=== PATIENT | male | born 1950 | race African-American/Black ===

== ENCOUNTER 2017-10-11 12:31 | Emergency (ER) | payer OTHER ==
--- NOTE | 2017-10-11 13:22 | RAD REPORT ---
EXAM DESCRIPTION: RAD - Chest Single View - 10/11/2017 1:03 pm CLINICAL HISTORY: Chest pain COMPARISON: None. TECHNIQUE: AP portable chest image was obtained 1254 hours . FINDINGS: Interstitial markings are prominent with the baseline unknown. No peripheral consolidation or mass. Heart size and vasculature are within normal limits. Significant failure or volume overload are not suspected. Sternotomy wires are in place. No measurable pleural effusion and no pneumothorax . No gross bony abnormality seen. No acute aortic findings suspected. IMPRESSION: No focal infiltrate, mass or significant failure/volume overload. Lung markings are prominent with the baseline unknown. Early interstitial edema or infiltrate could b e masked in this setting.
[2017-10-11 13:36] LABS: Protime INR 1.15
[2017-10-11 13:40] LABS: Absolute Lymphocytes (CBC) 1.6 K/uL (0.7-4.9); Absolute Monocytes 0.7 K/uL (0.1-1.3); Basophils % 0.5 % (0-1.3); Eosinophils % 4.2 % (0-4.4); Lymphocytes % 23.8 % (15.3-44.8); MCH 32.4 pg (27.0-35.0); MCV 95.6 fL (80-100); MPV 8.9 fL (7.6-11.3); Monocytes % 10.3 % (3.3-12.3); RBC Red Blood Cell Count 4.61 M/uL (4.33-5.43)
[2017-10-11 14:07] LABS: Albumin 3.1 g/dL (3.4-5.0); Bilirubin Direct 0.2 mg/dL (0-0.2); Bilirubin Total 0.6 mg/dL (0.2-1.0); CKMB Creatine Kinase MB 1.2 ng/mL (0.3-3.6); Protein, Total 8.1 g/dL (6.4-8.2)
[2017-10-11 14:12] LABS: Urine Blood 1+ (NEG); Urine Glucose NEGATIVE (NEG); Urine Protein 1+ (NEG); Urine Specific Gravity 1.025 (1.005-1.030)
--- NOTE | 2017-10-11 14:46 | EKG ---
Test Date: 2017-10-11 Test Time: 12:49:52 [employer] Supervisor: FAVIO MEASUREMENT RESULTS: Intervals: Rate: 75 RI: 152 QRSD: 90 QT: 360 QTc: 402 [place]: P: 56 RI: 152 QRS: 22 T: 94 INTERPRETIVE STATEMENTS: Normal sinus rhythm Cannot rule out Inferior infarct, age undetermined Abnormal ECG Compared to ECG 09/17/2006 12:08:12 Myocardial infarct finding now present Ventricular premature complex(es) no longer present Electronically Signed On 10-11-17 14:44:56 CDT by Joesph Garcia
[2017-10-11] MEDS ORDERED: NA CHLORIDE 0.9% 1,000 ML ONE (15:20)
[2017-10-11] MEDS ORDERED: ASPIRIN 81 MG CHEWABLE TABLET ONE (15:20)
--- NOTE | 2017-10-11 16:01 | RAD REPORT ---
EXAM DESCRIPTION: CT - Chest For Pe Angio - 10/11/2017 3:43 pm CLINICAL HISTORY: Chest pain, shortness of breath, elevated D-dimer COMPARISON: Chest films same date TECHNIQUE: Dynamically enhanced 3 mm thick images of the chest were obtained during administration o f approximately 150mL Isovue 370 IV contrast. Coronal and oblique reconstruction images were generate d and reviewed. Exam utilizes a protocol to evaluate the pulmonary arterial tree. All CT scans are performed using dose optimization technique as appropriate and may include automated exposure control or mA/KV adjustment according to patient size. FINDINGS: No pulmonary emboli are identified. The aorta as imaged shows no acute or suspicious finding. No pericardial thickening or effusion. Posterior gutter atelectasis on the right. No consolidated infiltrate on the right. There is a minima l focus of lung parenchymal opacification in the anterior mid left lung field which could be scarring or atelectatic lung. Mass lesion is unlikely though this can be monitored with a follow-up study in 3- 4 months. This focal opacification measures 2.0 x 1.1 cm (image 37/89). No pneumothorax. Patient h as a small to moderate right-sided pleural effusion. The component along the lateral upper right lung field and apex is likely loculated. Interstitial markings are prominent. Baseline for the patient is unknown. No mediastinal or hilar suspicious masses. No chest wall masses or abnormal axillary lymphadenopathy. No pericardial thickening or effusion. Heart size is upper normal. Sternotomy wires are in place. No acute rib finding. IMPRESSION: No pulmonary emboli identified. Small to moderate right-sided pleural effusion. Most is layering in the posterior right chest. There is a loculated component in the lateral right upper lung field an apex. Interstitial markings are prominent. Baseline is unknown. A 2.0 x 1.1 centimeter focal lung parenchymal opacity anterior mid chest on the left is probably scar ring or atelectasis but needs monitoring with follow-up examination in 3-4 months.
[2017-10-11] MEDS ORDERED: KETOROLAC 30 MG/ML INJ ONE (16:19)
[2017-10-11] MEDS ORDERED: FENTANYL CITR 100 MCG/2 ML ONE (16:58)
[2017-10-11] MEDS ORDERED: ACETYLCYST 6,000 MG/30 ML VIAL ONE (16:58)
--- NOTE | 2017-10-11 16:58 | EDPHYS ---
Physician Documentation [facility] Name: Heraclio Andre III Age: 67 yrs Sex: Male : 1950 Arrival Date: 10/11/2017 Time: 12:33 Bed 23 Private MD: ED Physician Korey Mendoza HPI: 10/11 12:58 This 67 yrs old Black Male presents to ER via Ambulatory with complaints of Chest Pain. cp 12:58 The patient or guardian reports chest pain that is located primarily in the right lower cp lateral chest. 12:58 Onset: 4 day(s) ago. The pain does not radiate. Associated signs and symptoms: cp Pertinent positives: cough, Pertinent negatives: abdominal pain, diaphoresis, lower extremity pain, lower extremity swelling, palpitations, shortness of breath, fever. 12:58 The chest pain is described as sharp. Duration: The patient or guardian reports a cp single episode, that is still ongoing. 12:58 Modifying factors: the symptoms are aggravated by breathing. cp Historical: - Allergies: 12:49 Codeine; hb - Home Meds: 15:28 Novolog 100 unit/mL Sub-Q soln [Active]; aspirin 81 mg Oral TbEC 1 tab once daily hb [Active]; - PMHx: 15:28 Diabetes - IDDM; hb - PSHx: 12:49 CABG; hb - Immunization history:: Adult Immunizations up to date. - Social history:: Smoking status: Patient/guardian denies using tobacco. - Ebola Screening: : No symptoms or risks identified at this time. ROS: 13:05 Constitutional: Negative for body aches, chills, fever, poor PO intake. cp 13:05 Eyes: Negative for injury, pain, redness, and discharge. cp 13:05 ENT: Negative for drainage from ear(s), ear pain, sore throat, difficulty swallowing, difficulty handling secretions. 13:05 Cardiovascular: Positive for chest pain, of the right lower lateral, Negative for edema, palpitations. 13:05 Respiratory: Positive for cough, with yellow sputum, Negative for hemoptysis, shortness of breath, wheezing. 13:05 Abdomen/GI: Negative for abdominal pain, nausea, vomiting, and diarrhea, constipation, black/tarry stool, rectal bleeding. 13:05 Back: Negative for pain at rest, pain with movement. 13:05 : Negative for urinary symptoms. 13:05 MS/extremity: Negative for decreased range of motion, pain, paresthesias, swelling. 13:05 Skin: Negative for cellulitis, rash. 13:05 Neuro: Negative for altered mental status, dizziness, headache, syncope, near syncope, weakness. 13:05 All other systems are negative. Exam: 12:53 ECG was reviewed by the Attending Physician. cp 13:12 Constitutional: The patient appears in no acute distress, alert, awake, cp non-diaphoretic, non-toxic, well developed, well nourished, uncomfortable. 13:12 Head/Face: Normocephalic, atraumatic. Eyes: Pupils equal round and reactive to light, cp extra-ocular motions intact. Lids and lashes normal. Conjunctiva and sclera are non-icteric and not injected. Cornea within normal limits. Periorbital areas with no swelling, redness, or edema. ENT: Nares patent. No nasal discharge, no septal abnormalities noted. Tympanic membranes are normal and external auditory canals are clear. Oropharynx with no redness, swelling, or masses, exudates, or evidence of obstruction, uvula midline. Mucous membranes moist. Neck: Trachea midline, no thyromegaly or masses palpated, and no cervical lymphadenopathy. Supple, full range of motion without nuchal rigidity, or vertebral point tenderness. No Meningismus. 13:12 Chest/axilla: Inspection: normal, Palpation: is normal, no crepitus, no tenderness. 13:12 Cardiovascular: Rate: normal, Rhythm: regular, Pulses: Pulses are 2+ in right radial artery and left radial artery. Heart sounds: murmur, not appreciated, rub, not appreciated, gallop, not appreciated, Edema: is not appreciated, JVD: is not appreciated. 13:12 Respiratory: the patient does not display signs of respiratory distress, Respirations: normal, no use of accessory muscles, no retractions, no splinting, no tachypnea, labored breathing, is not present, Breath sounds: decreased breath sounds, are located in both bases, stridor, is not appreciated, wheezing: is not appreciated. 13:12 Abdomen/GI: Inspection: distension, Bowel sounds: active, all quadrants, Palpation: abdomen is soft and non-tender, in all quadrants, rebound tenderness, is not appreciated, voluntary guarding, is not appreciated, involuntary guarding, is not appreciated. 13:12 Back: pain, is absent, ROM is normal, CVA tenderness, is absent. 13:12 Skin: cellulitis, is not appreciated, no rash present. 13:12 Neuro: Orientation: to person, place \T\ time. Mentation: lucid, able to follow commands, Cerebellar function: is grossly normal, Motor: moves all fours, strength is normal, Sensation: no obvious gross deficits. Vital Signs: 12:49 BP 132 / 87; Pulse 77; Resp 16; Temp 98(TE); Pulse Ox 100% on R/A; Pain 5/10; hb 13:32 BP 122 / 78; Pulse 77; Resp 16; Pulse Ox 97% on R/A; hb 14:30 BP 126 / 76; Pulse 75; Resp 15; Pulse Ox 100% on R/A; hb 15:23 BP 128 / 87; Pulse 73; Resp 17; Pulse Ox 100% on R/A; hb 16:22 BP 138 / 81; Pulse 71; Resp 16; Pulse Ox 100% on R/A; Pain 8/10; hb 17:00 BP 136 / 80; Pulse 70; Resp 16; Pulse Ox 100% on R/A; Pain 4/10; hb MDM: 12:41 Patient medically screened. cp 15:00 Differential diagnosis: acute myocardial infarction, acute pericarditis, chest wall cp pain, pleurisy, pneumonia, pneumothorax, pulmonary embolus, stable angina, unstable angina, pleural effusion. 17:10 The patient was given aspirin in the Emergency Department. cp 17:10 Data reviewed: vital signs, nurses notes, lab test result(s), EKG, radiologic studies, cp CT scan, plain films. Test interpretation: by ED physician or midlevel provider: ECG, plain radiologic studies. Special discussion: Based on the patient's history, exam, and Dx evaluation, there is no indication for emergent intervention or inpatient Tx. It is understood by the patient/guardian that if the Sx's persist or worsen they need to return immediately for re-evaluation. ED course: VSS. Pain improved with meds. Will discharge to home for continued monitoring. 10/11 12:46 Order name: Basic Metabolic Panel; Complete Time: 14:20 cp 10/11 14:20 Interpretation: Normal except: GLUC 170; CRE 1.50; GFR 56. cp 10/11 12:46 Order name: CBC with Diff; Complete Time: 14:20 cp 10/11 16:17 Interpretation: Reviewed. cp 10/11 12:46 Order name: Ckmb; Complete Time: 14:20 cp 10/11 12:46 Order name: CPK; Complete Time: 14:20 cp 10/11 12:46 Order name: LFT's; Complete Time: 14:20 cp 10/11 15:20 Interpretation: Normal except: ALB 3.1; GLOB 5.0; A/G 0.6. cp 10/11 12:46 Order name: Magnesium; Complete Time: 14:20 cp 10/11 12:46 Order name: NT PRO-BNP; Complete Time: 14:20 10/11 16:17 Interpretation: Abnormal: NT PRO-BNP 235. cp 10/11 12:46 Order name: PT-INR; Complete Time: 14:20 10/11 12:46 Order name: Ptt, Activated; Complete Time: 14:20 10/11 12:46 Order name: Troponin (emerg Dept Use Only); Complete Time: 14:20 10/11 12:46 Order name: XRAY Chest (1 view); Complete Time: 13:28 10/11 14:10 Order name: Urine Dipstick--Ancillary (enter results); Complete Time: 14:20 10/11 14:42 Order name: D-Dimer; Complete Time: 15:20 10/11 16:17 Interpretation: Abnormal: D-DIMER 3283. 10/11 14:42 Order name: LAB Add On 10/11 12:46 Order name: EKG; Complete Time: 12:46 10/11 12:46 Order name: Cardiac monitoring; Complete Time: 12:53 cp 10/11 12:46 Order name: EKG - Nurse/Tech; Complete Time: 12:53 10/11 12:46 Order name: IV Saline Lock; Complete Time: 13:33 cp 10/11 12:46 Order name: Labs collected and sent; Complete Time: 13:33 cp 10/11 12:46 Order name: O2 Per Protocol; Complete Time: 12:53 10/11 12:46 Order name: O2 Sat Monitoring; Complete Time: 12:53 10/11 12:46 Order name: Urine Dipstick-Ancillary (obtain specimen); Complete Time: 14:28 cp 10/11 15:11 Order name: CT Chest For PE Angio; Complete Time: 16:12 cp EC:53 Rate is 75 beats/min. Rhythm is regular. ID interval is normal. QRS interval is normal. cp QT interval is normal. T waves are Inverted in leads I, aVL, V6. Interpreted by me. Reviewed by me. Administered Medications: 15:22 Drug: NS 0.9% 500 ml Route: IV; Rate: bolus; Site: left antecubital; hb 16:10 Follow up: Response: No adverse reaction; IV Status: Completed infusion hb 15:22 Drug: Aspirin Chewable Tablet 324 mg Route: PO; hb 16:20 Follow up: Response: No adverse reaction hb 16:20 Drug: TORadol 30 mg Route: IVP; Site: left antecubital; hb 17:00 Follow up: Response: No adverse reaction hb 16:30 Drug: NS 0.9% 1000 ml Route: IV; Rate: 75 ml/hr; Site: left antecubital; hb 17:19 Follow up: Response: No adverse reaction; IV Status: Completed infusion hb 17:00 Drug: Mucomyst - Acetylcysteine 600 mg Route: PO; hb 17:08 Follow up: Response: Medication administered at discharge. hb 17:00 Drug: fentaNYL (PF) 50 mcg Route: IVP; Site: left antecubital; hb 17:18 Follow up: Response: No adverse reaction; Pain is decreased hb Disposition: 10/12 07:07 Co-signature as Attending Physician, Korey Mendoza MD I agree with the assessment and jonah plan of care. Disposition: 10/11/17 16:57 Discharged to Home. Impression: Pleural effusion in other conditions classified elsewhere - Right Lung, Other chest pain. - Condition is Stable. - Discharge Instructions: Nonspecific Chest Pain, Pleural Effusion. - Prescriptions for Tramadol 50 mg Oral Tablet - take 1 tablet by ORAL route every 8 hours as needed; 20 tablet. Ibuprofen 800 mg Oral Tablet - take 1 tablet by ORAL route every 8 hours As needed take with food; 30 tablet. - Medication Reconciliation Form, Thank You Letter, Antibiotic Education, Prescription Opioid Use form. - Follow up: Private Physician; When: 2 - 3 days; Reason: Recheck today's complaints. - Problem is new. - Symptoms have improved. Signatures: Dispatcher [employer] Korey Rios MD MD cha Page, Corey, PA PA cp Paige Villarreal RN RN Corrections: (The following items were deleted from the chart) 10/11 17:23 16:57 10/11/2017 16:57 Discharged to Home. Impression: Pleural effusion in other hb conditions classified elsewhere - Right Lung; Other chest pain. Condition is Stable. Forms are Medication Reconciliation Form, Thank You Letter, Antibiotic Education, Prescription Opioid Use. Follow up: Private Physician; When: 2 - 3 days; Reason: Recheck today's complaints. Problem is new. Symptoms have improved. cp
--- NOTE | 2017-10-11 16:58 | ER ---
Nurse's Notes [facility] Name: Heraclio Andre III Age: 67 yrs Sex: Male : 1950 Arrival Date: 10/11/2017 Time: 12:33 Bed 23 Private MD: Diagnosis: Pleural effusion in other conditions classified elsewhere-Right Lung;Other chest pain Presentation: 10/11 12:47 Presenting complaint: Patient states: Productive cough with yellow sputum x 4 days, hb right lateral chest pain x 1 day. Hx CABG 02/2017. Transition of care: patient was not received from another setting of care. Onset of symptoms was October 11, 2017. Risk Assessment: Do you want to hurt yourself or someone else? Patient reports no desire to harm self or others. Initial Sepsis Screen: Does the patient meet any 2 criteria? No. Patient's initial sepsis screen is negative. Does the patient have a suspected source of infection? No. Patient's initial sepsis screen is negative. Care prior to arrival: None. 12:47 Method Of Arrival: Ambulatory hb 12:47 Acuity: MIGEL 3 hb Historical: - Allergies: 12:49 Codeine; hb - Home Meds: 15:28 Novolog 100 unit/mL Sub-Q soln [Active]; aspirin 81 mg Oral TbEC 1 tab once daily hb [Active]; - PMHx: 15:28 Diabetes - IDDM; hb - PSHx: 12:49 CABG; hb - Immunization history:: Adult Immunizations up to date. - Social history:: Smoking status: Patient/guardian denies using tobacco. - Ebola Screening: : No symptoms or risks identified at this time. Screenin:53 Abuse screen: Denies threats or abuse. Denies injuries from another. Nutritional hb screening: No deficits noted. Tuberculosis screening: No symptoms or risk factors identified. Fall Risk None identified. Assessment: 12:54 General: Appears in no apparent distress. uncomfortable, Behavior is calm, cooperative. hb Pain: Pain does not radiate. Pain currently is 5 out of 10 on a pain scale. Pain began 1 day ago. Neuro: Level of Consciousness is awake, alert, obeys commands, Oriented to person, place, time, situation. Cardiovascular: Heart tones S1 S2 present Capillary refill < 3 seconds Patient's skin is warm and dry. Respiratory: Airway is patent Trachea midline Respiratory effort is even, unlabored, Respiratory pattern is regular, symmetrical, Breath sounds are clear bilaterally. GI: No signs and/or symptoms were reported involving the gastrointestinal system. : No signs and/or symptoms were reported regarding the genitourinary system. EENT: No signs and/or symptoms were reported regarding the EENT system. Derm: No signs and/or symptoms reported regarding the dermatologic system. Skin is intact, is healthy with good turgor. Musculoskeletal: No signs and/or symptoms reported regarding the musculoskeletal system. 13:45 Reassessment: Patient appears in no apparent distress at this time. No changes from hb previously documented assessment. Patient and/or family updated on plan of care and expected duration. Pain level reassessed. Patient is alert, oriented x 3, equal unlabored respirations, skin warm/dry/pink. 14:45 Reassessment: Patient appears in no apparent distress at this time. No changes from hb previously documented assessment. Patient and/or family updated on plan of care and expected duration. Pain level reassessed. Patient is alert, oriented x 3, equal unlabored respirations, skin warm/dry/pink. 15:26 Reassessment: Pt transported to CT via wheelchair with tech. hb 15:39 Reassessment: Pt returned from CT. hb 16:20 Reassessment: Pt c/o right lateral chest pain 8/10, NAD, VSS. PA Page notified, Toradol hb administered as ordered. Family at bedside. 17:10 Reassessment: Patient appears in no apparent distress at this time. Patient and/or hb family updated on plan of care and expected duration. Pain level reassessed. Patient is alert, oriented x 3, equal unlabored respirations, skin warm/dry/pink. Vital Signs: 12:49 BP 132 / 87; Pulse 77; Resp 16; Temp 98(TE); Pulse Ox 100% on R/A; Pain 5/10; hb 13:32 BP 122 / 78; Pulse 77; Resp 16; Pulse Ox 97% on R/A; hb 14:30 BP 126 / 76; Pulse 75; Resp 15; Pulse Ox 100% on R/A; hb 15:23 BP 128 / 87; Pulse 73; Resp 17; Pulse Ox 100% on R/A; hb 16:22 BP 138 / 81; Pulse 71; Resp 16; Pulse Ox 100% on R/A; Pain 8/10; hb 17:00 BP 136 / 80; Pulse 70; Resp 16; Pulse Ox 100% on R/A; Pain 4/10; hb ED Course: 12:33 Patient arrived in ED. rg4 12:41 Korey Saucedo PA is PHCP. cp 12:41 Korey Mendoza MD is Attending Physician. cp 12:42 Paige Villarreal, RN is Primary Nurse. hb 12:48 Triage completed. hb 12:49 Arm band placed on left wrist. hb 12:53 EKG done, by industrial tech instructor. reviewed by Korey MONTOYA. at1 12:53 XRAY Chest (1 view) Sent. hb 12:55 Patient has correct armband on for positive identification. Placed in gown. Bed in low hb position. Call light in reach. Side rails up X 1. manager monitoring on. Pulse ox on. NIBP on. 13:02 X-ray completed. Portable x-ray completed in exam room. Patient tolerated procedure jb2 well. 13:03 XRAY Chest (1 view) In Process Unspecified. EDMS 13:10 Patient maintains SpO2 saturation greater than 95% on room air. hb 13:20 Inserted saline lock: 20 gauge in left antecubital area, using aseptic technique. hb 15:05 Notified Nurse Practitioner and/or Physician Early Childhood Education Coordinator of a critical lab result(s), iw [id number]. 15:[address] via wheelchair. sw 15:40 CT completed. Patient tolerated procedure well. Note: PATIENTS 20 GAUGE IV IN RIGHT AC sw WAS NOT FUNCTIONAL WHEN PT WAS BROUGHT TO CT SCANNER, ROTARY RIG ENGINE OPERATOR RE INSERTED A 22 G INTO PT'S RT WRIST BEFORE EXAMINATION. Patient moved back from CT. 15:44 CT Chest For PE Angio In Process Unspecified. EDMS 17:18 No provider procedures requiring assistance completed. IV discontinued, intact, hb bleeding controlled, No redness/swelling at site. Pressure dressing applied. Administered Medications: 15:22 Drug: NS 0.9% 500 ml Route: IV; Rate: bolus; Site: left antecubital; hb 16:10 Follow up: Response: No adverse reaction; IV Status: Completed infusion hb 15:22 Drug: Aspirin Chewable Tablet 324 mg Route: PO; hb 16:20 Follow up: Response: No adverse reaction hb 16:20 Drug: TORadol 30 mg Route: IVP; Site: left antecubital; hb 17:00 Follow up: Response: No adverse reaction hb 16:30 Drug: NS 0.9% 1000 ml Route: IV; Rate: 75 ml/hr; Site: left antecubital; hb 17:19 Follow up: Response: No adverse reaction; IV Status: Completed infusion hb 17:00 Drug: Mucomyst - Acetylcysteine 600 mg Route: PO; hb 17:08 Follow up: Response: Medication administered at discharge. hb 17:00 Drug: fentaNYL (PF) 50 mcg Route: IVP; Site: left antecubital; hb 17:18 Follow up: Response: No adverse reaction; Pain is decreased hb Outcome: 16:57 Discharge ordered by MD. cp 17:18 Discharged to home ambulatory, with family. hb 17:18 Condition: stable 17:18 Discharge instructions given to patient, family, Instructed on discharge instructions, follow up and referral plans. medication usage, Demonstrated understanding of instructions, follow-up care, medications, Prescriptions given X 2. 17:23 Patient left the ED. hb Signatures: Dispatcher [employer] EDMS Ethan Carrion jb2 Sonia Molina, RN RN iw Zoila jennings, wet room supervisor EKG Tat1 Jami Lucio Corey, PA PA cp Baxter, Heather, TITI RN Zoë Castillo4
[2017-10-11 17:28] VITALS: TEMP 98
[2017-10-11 17:31] VITALS: O2SAT 100
[2017-10-11 17:34] VITALS: BP 136/80
== END 2017-10-11 17:23 | disposition home or self-care (01) ==
LOC: ER 12:31
DX: J90 Pleural effusion, not elsewhere classified (principal); R07.89 Other chest pain; E11.9 Type 2 diabetes mellitus without complications; Z88.6 Allergy status to analgesic agent; Z79.4 Long term (current) use of insulin
CPT/HCPCS: 36415; 71045; 71275; 80048; 80076; 81003; 82550; 82553; 83735; 83880; 84484; 85025; 85379; 85610; 85730; 93005; J3010; J7030; Q9967; 96361; 96374; 96375; 99285

== ENCOUNTER 2021-04-09 13:17 | Inpatient (IN) | payer OTHER ==
[2021-04-09 14:11] LABS: Absolute Lymphocytes (CBC) 0.4 K/uL (0.7-4.9); Hematocrit 43.3 % (39.6-49.0); Lymphocytes % 3.5 % (15.3-44.8); MPV 8.5 fL (7.6-11.3); RBC Red Blood Cell Count 4.71 M/uL (4.33-5.43)
[2021-04-09 14:16] LABS: Protime INR 1.1
[2021-04-09 14:38] LABS: Albumin 2.6 g/dL (3.4-5.0); Bilirubin Direct 0.2 mg/dL (0-0.2); Bilirubin Total 0.6 mg/dL (0.2-1.0); Magnesium 2.8 mg/dL (1.8-2.4); Potassium 4.4 mmol/L (3.5-5.1); Protein, Total 8.4 g/dL (6.4-8.2); Troponin High Sensitivity 9.5 pg/mL (<58.9)
[2021-04-09 14:56] LABS: Blood Morphology Comment NOT SEEN (NOT SEEN); Platelet Estimate ADEQ; White Blood Cell Scan OK (OK)
--- NOTE | 2021-04-09 14:59 | RAD REPORT ---
EXAM DESCRIPTION: Bryanna Single View04/09/2021 2:07 pm CLINICAL HISTORY: Abdominal pain COMPARISON: none FINDINGS: Moderate bilateral pulmonary opacities. Heart is borderline enlarged. Postsurgical changes involve the chest IMPRESSION: Moderate bilateral pulmonary opacities probably pneumonia
--- NOTE | 2021-04-09 17:44 | RAD REPORT ---
EXAM DESCRIPTION: CT - Thorax Wo Con - 04/09/2021 5:35 pm CLINICAL HISTORY: sob COMPARISON: April 09, 2021 x-ray TECHNIQUE: Computed axial tomography of the chest was obtained. Contrast was not requested. All CT scans are performed using dose optimization technique as appropriate and may include automated exposure control or mA/KV adjustment according to patient size. FINDINGS: The evaluation of mediastinum, umu and vessels is limited secondary to lack of IV contras t administration. Moderate right and [id number] left ground-glass opacities within the lungs. Paraseptal emphysema. No mediastinal or hilar lymphadenopathy is seen. Minimal chronic right pleural effusion with pleural thickening. No pericardial effusion IMPRESSION: Moderate right and [id number] left ground-glass opacities within the lungs can be seen with Covid pneumonia
--- NOTE | 2021-04-09 19:02 | ER ---
Nurse's Notes [facility] Name: Heraclio Andre III Age: 71 yrs Sex: Male : 1950 Arrival Date: 04/09/2021 Time: 13:21 Bed 27 Private MD: Diagnosis: Other viral pneumonia;SARS-associated coronavirus as the cause of diseases classified elsewhere Presentation: 04/09 13:24 Chief complaint: EMS states: DX WITH COVID PNEUMONIA 5 DAYS AGO, NOW WITH SOB. bp Coronavirus screen: Client reports previous positive COVID test result. Ebola Screen: No symptoms or risks identified at this time. 13:24 Method Of Arrival: EMS: [facility] bp 14:06 Initial Sepsis Screen: Does the patient meet any 2 criteria? No. Patient's initial jg9 sepsis screen is negative. Does the patient have a suspected source of infection? No. Patient's initial sepsis screen is negative. Risk Assessment: Do you want to hurt yourself or someone else? Patient reports no desire to harm self or others. Onset of symptoms is unknown. 14:06 Acuity: MIGEL 3 jg9 Triage Assessment: 14:06 General: Appears uncomfortable, Behavior is calm. Respiratory: Reports shortness of jg9 breath at rest on exertion Onset: The symptoms/episode began/occurred at an unknown time. the patient has mild shortness of breath. Historical: - Allergies: 14:05 Codeine; jg9 - Home Meds: 14:05 aspirin 81 mg Oral TbEC 1 tab once daily [Active]; Novolog 100 unit/mL Sub-Q soln jg9 [Active]; - PMHx: 14:05 Diabetes - IDDM; jg9 - Immunization history:: Adult Immunizations up to date. - Social history:: Smoking status: unknown. Screenin:35 Abuse screen: Denies threats or abuse. Denies injuries from another. Nutritional jg9 screening: No deficits noted. Tuberculosis screening: No symptoms or risk factors identified. Fall Risk None identified. Assessment: 13:36 Pain: Denies pain. Cardiovascular: No deficits noted. Rhythm is sinus rhythm. jg9 Respiratory: Reports shortness of breath since since diagnosed with COVID on [place] Airway is patent Respiratory effort is even, unlabored, Breath sounds are diminished bilaterally. 17:08 Reassessment: Patient ambulated on room air SpO2 at rest 95% with exertion less than 12 jg9 feet SpO2 dropped into the 80's, with further ambulation-SpO2 continued to decline getting as low as 68% and patient reporting significant sob having to pause to take steps back into the room. Vital Signs: 13:24 BP 120 / 60; Pulse 70; Resp 19; Temp 98; Pulse Ox 84% ; bp 13:30 BP 106 / 60; Pulse 75; Resp 16 S; Temp 97.2(TE); Pulse Ox 96% on R/A; Weight 107.05 kg jg9 (R); Height 5 ft. 10 in. (177.80 cm) (R); 14:15 BP 121 / 67; Pulse 71; Resp 26 S; Pulse Ox 100% on R/A; jg9 15:45 BP 116 / 68; Pulse 73; Resp 24 S; Pulse Ox 100% on R/A; jg9 18:15 BP 133 / 77; Pulse 86; Resp 17 S; Pulse Ox 95% on 3 lpm NC; jg9 13:30 Body Mass Index 33.86 (107.05 kg, 177.80 cm) jg9 ED Course: 13:21 Patient arrived in ED. ss 13:24 Umer Arceo, RN is Primary Nurse. bp 13:29 Eliezer Ch MD is Attending Physician. kdr 13:33 Arm band placed on. bp 13:55 Inserted saline lock: 22 gauge in right antecubital area, using aseptic technique. jg9 Blood collected. 14:06 Triage completed. jg9 14:06 Patient has correct armband on for positive identification. Bed in low position. Call jg9 light in reach. Side rails up X 1. 14:07 XRAY Chest (1 view) In Process Unspecified. EDMS 17:35 CT Chest Wo Con In Process Unspecified. EDMS 19:01 Benjamin Toribio is Hospitalizing Provider. kdr Administered Medications: 19:08 Drug: Decadron - Dexamethasone 10 mg Route: IVP; Site: right antecubital; jg9 Outcome: 19:02 Decision to Hospitalize by Provider. kdr 04/10 18:49 Admitted to Tele accompanied by tech, via stretcher, with oxygen. 6 18:49 Condition: good [facility] 18:49 Instructed on the need for admit. 18:49 Patient left the ED. jh6 Signatures: Dispatcher [employer] EDMS Eliezer Ch MD MD kdr Smirch, Shelby, RN RN Umer Butts RN RN bp Hastedt, Jennifer, RN RN jh6 Tamika Hernandez RN RN jg9
--- NOTE | 2021-04-09 19:02 | EDPHYS ---
Physician Documentation [facility] Name: Heraclio Andre III Age: 71 yrs Sex: Male : 1950 Arrival Date: 04/09/2021 Time: 13:21 Bed 27 Private MD: ED Physician Eliezer Ch HPI: 04/10 19:06 This 71 yrs old Black Male presents to ER via EMS with complaints of Shortness Of kdr Breath. 19:06 The patient has shortness of breath at rest, with light activity. Onset: The kdr symptoms/episode began/occurred gradually, 5 day(s) ago. Duration: The symptoms are intermittent. The patient's shortness of breath is aggravated by exertion, light activity, talking, walking, is alleviated by nothing. Associated signs and symptoms: The patient has no apparent associated signs or symptoms. Severity of symptoms: At their worst the symptoms were mild moderate just prior to arrival, in the emergency department the symptoms are unchanged. The patient has not experienced similar symptoms in the past. The patient has not recently seen a physician. Patient was diagnosed with pneumonia about 5 days ago is now increasingly short of breath. Historical: - Allergies: 04/09 14:05 Codeine; jg9 - Home Meds: 14:05 aspirin 81 mg Oral TbEC 1 tab once daily [Active]; Novolog 100 unit/mL Sub-Q soln jg9 [Active]; - PMHx: 14:05 Diabetes - IDDM; jg9 - Immunization history:: Adult Immunizations up to date. - Social history:: Smoking status: unknown. ROS: 04/10 19:06 Constitutional: Negative for fever, chills, and weight loss, Eyes: Negative for injury, kdr pain, redness, and discharge, Neck: Negative for injury, pain, and swelling, Cardiovascular: Negative for chest pain, palpitations, and edema, Abdomen/GI: Negative for abdominal pain, nausea, vomiting, diarrhea, and constipation, Back: Negative for injury and pain, : Negative for injury, bleeding, discharge, and swelling, MS/Extremity: Negative for injury and deformity, Skin: Negative for injury, rash, and discoloration, Neuro: Negative for headache, weakness, numbness, tingling, and seizure activity. Respiratory: Positive for dyspnea on exertion, pleurisy, shortness of breath, Negative for hemoptysis, orthopnea. Exam: 04/09 15:00 ECG was reviewed by the Attending Physician. kdr 04/10 19:08 Constitutional: This is a well developed, well nourished patient who is awake, alert, kdr and in no acute distress. Head/Face: Normocephalic, atraumatic. Eyes: Pupils equal round and reactive to light, extra-ocular motions intact. Lids and lashes normal. Conjunctiva and sclera are non-icteric and not injected. Cornea within normal limits. Periorbital areas with no swelling, redness, or edema. Neck: Trachea midline, no thyromegaly or masses palpated, and no cervical lymphadenopathy. Supple, full range of motion without nuchal rigidity, or vertebral point tenderness. No Meningismus. Chest/axilla: Normal chest wall appearance and motion. Nontender with no deformity. No lesions are appreciated. Cardiovascular: Regular rate and rhythm with a normal S1 and S2. No gallops, murmurs, or rubs. Normal PMI, no JVD. No pulse deficits. Abdomen/GI: Soft, non-tender, with normal bowel sounds. No distension or tympany. No guarding or rebound. No evidence of tenderness throughout. Back: No spinal tenderness. No costovertebral tenderness. Full range of motion. Skin: Warm, dry with normal turgor. Normal color with no rashes, no lesions, and no evidence of cellulitis. MS/ Extremity: Pulses equal, no cyanosis. Neurovascular intact. Full, normal range of motion. Neuro: Awake and alert, GCS 15, oriented to person, place, time, and situation. Cranial nerves II-XII grossly intact. Motor strength 5/5 in all extremities. Sensory grossly intact. Cerebellar exam normal. Normal gait. Psych: Awake, alert, with orientation to person, place and time. Behavior, mood, and affect are within normal limits. Vital Signs: 04/09 13:24 BP 120 / 60; Pulse 70; Resp 19; Temp 98; Pulse Ox 84% ; bp 13:30 BP 106 / 60; Pulse 75; Resp 16 S; Temp 97.2(TE); Pulse Ox 96% on R/A; Weight 107.05 kg jg9 (R); Height 5 ft. 10 in. (177.80 cm) (R); 14:15 BP 121 / 67; Pulse 71; Resp 26 S; Pulse Ox 100% on R/A; jg9 15:45 BP 116 / 68; Pulse 73; Resp 24 S; Pulse Ox 100% on R/A; jg9 18:15 BP 133 / 77; Pulse 86; Resp 17 S; Pulse Ox 95% on 3 lpm NC; jg9 13:30 Body Mass Index 33.86 (107.05 kg, 177.80 cm) j9 MDM: 19:02 Patient medically screened. [facility] 04/10 19:06 Data reviewed: vital signs, nurses notes, lab test result(s), radiologic studies. kdr Counseling: I had a detailed discussion with the patient and/or guardian regarding: the historical points, exam findings, and any diagnostic results supporting the discharge/admit diagnosis, lab results, radiology results, the need for outpatient follow up. 04/09 13:30 Order name: Basic Metabolic Panel; Complete Time: 14:54 [facility] 04/09 13:30 Order name: CBC with Diff; Complete Time: 17:04 [facility] 04/09 13:30 Order name: LFT's; Complete Time: 14:54 [facility] 04/09 13:30 Order name: Magnesium; Complete Time: 14:54 [facility] 04/09 13:30 Order name: NT PRO-BNP; Complete Time: 14:54 [facility] 04/09 13:30 Order name: PT-INR; Complete Time: 14:54 [facility] 04/09 13:30 Order name: Troponin HS; Complete Time: 14:54 [facility] 04/09 14:56 Order name: CBC Smear Scan; Complete Time: 17:04 [facility] 04/10 05:01 Order name: CBC with Automated Diff [facility] 04/10 05:07 Order name: D-Dimer [facility] 04/10 05:21 Order name: Comprehensive Metabolic Panel [facility] 04/10 05:21 Order name: Phosphorus [facility] 04/10 05:21 Order name: Lipid Profile [facility] 04/10 05:21 Order name: C-Reactive Protein [facility] 04/09 13:30 Order name: XRAY Chest (1 view); Complete Time: 17:04 [facility] 04/09 13:30 Order name: EKG; Complete Time: 13:31 [facility] 04/09 13:30 Order name: Cardiac monitoring; Complete Time: 13:38 [facility] 04/09 13:30 Order name: EKG - Nurse/Tech; Complete Time: 14:03 [facility] 04/09 13:30 Order name: IV Saline Lock; Complete Time: 14:03 [facility] 04/09 13:30 Order name: Labs collected and sent; Complete Time: 14:03 [facility] 04/09 13:30 Order name: O2 Per Protocol; Complete Time: 14:21 [facility] 04/09 13:30 Order name: O2 Sat Monitoring; Complete Time: 14:03 [facility] 04/09 17:05 Order name: CT Chest Wo Con; Complete Time: 18:11 [facility] 04/10 05:21 Order name: Magnesium [facility] 04/10 05:21 Order name: Ferritin [facility] 04/10 08:12 Order name: Glucose, Ancillary Testing [facility] 04/10 12:26 Order name: Glucose, Ancillary Testing [facility] 04/10 17:10 Order name: Glucose, Ancillary Testing [facility] EC/27 15:00 Rate is 77 beats/min. Rhythm is regular, Sinus Rhythm with No ectopy. QRS [place] is kdr Normal. OR interval is normal. QRS interval is normal. QT interval is normal. Clinical impression: NSR w/ Non-specific ST/T Changes. Administered Medications: 19:08 Drug: Decadron - Dexamethasone 10 mg Route: IVP; Site: right antecubital; jg9 Disposition Summary: 04/09/21 19:02 Hospitalization Ordered Hospitalization Status: Inpatient Admission kdr Provider: Benjamin Toribio kdr Condition: Fair kdr Problem: an ongoing problem kdr Symptoms: are unchanged kdr Bed/Room Type: Standard kdr Location: Telemetry/MedSurg (Inpatient)(04/10/21 16:46) Room Assignment: [facility](04/10/21 16:46) eb Diagnosis - Other viral pneumonia kdr - SARS-associated coronavirus as the cause of diseases classified elsewhere kdr Forms: - Medication Reconciliation Form kdr - SBAR form kdr Signatures: Dispatcher [employer] EDRI Svetlana Winkler RN RN Eliezer Joseph MD MD kdr Peltier, Brian, RN RN bp Botello, Elizabeth eb Gilmore, Jennifer, RN RN jg9 Corrections: (The following items were deleted from the chart) 19:45 19:02 Telemetry/MedSurg (Inpatient) [facility] 19:45 19:02 [facility] 04/10 16:04/09 19:45 BR ER HOLD mw eb 04/10 19:45 ERHOLD- mw eb
[2021-04-09] MEDS ORDERED: dexAMETHasone 10 MG/ML VIAL ONE (19:07)
--- NOTE | 2021-04-09 19:42 | P.HP ---
Certification for Inpatient Patient admitted to: Inpatient With expected LOS: >2 Midnights Patient will require the following post-hospital care: None Practitioner: I am a practitioner with admitting privileges, knowledge of patient current condition, hospital course, and medical plan of care. Services: Services provided to patient in accordance with Admission requirements found in Title 42 Section 412.3 of the Code of Federal Regulations Patient History Date of Service: 04/09/21 Primary Care Provider: Marie Reason for admission: covid pneumonia History of Present Illness: Mr. Andre is a 71 yo M with T2DM, CAD, HTN, CKD who presents with two weeks of fever and SOB. He also reports sore throat, fatigue, nausea, and diarrhea. He tested positive for COVID at [facility] today. Upon arrival, his oxygen saturations were 84% on room air, and decreased to 69% upon ambulation. At bedside, his sats are 100% on 4L. He says he still has had good fluid intake. BUN 39 Cr 1.78 GFR 46 Glu 370 AST 58 ALT 84 BNP 142 CXR FINDINGS: Moderate bilateral pulmonary opacities. Heart is borderline enlarged. Postsurgical changes involve the chest IMPRESSION: Moderate bilateral pulmonary opacities probably pneumonia CTPE FINDINGS: The evaluation of mediastinum, umu and vessels is limited secondary to lack of IV contrast administration. Moderate right and ngft-lf-[id number] left ground-glass opacities within the lungs. Paraseptal emphysema. No mediastinal or hilar lymphadenopathy is seen. Minimal chronic right pleural effusion with pleural thickening. No pericardial effusion IMPRESSION: Moderate right and uzrw-vh-wclikndo left ground-glass opacities within the lungs can be seen with Covid pneumonia Allergies codeine [Codeine] Allergy (Intermediate, Verified 12/08/11 11:33) Itching - Past Medical/Surgical History -: DM -: CAD -: HTN -: CKD -: triple bypass surgery -: cardiac stents - Family History Family History: Reviewed- Non-Contributory - Social History Smoking Status: Never smoker Alcohol use: No CD- Drugs: No Caffeine use: Yes Place of Residence: Home Review of Systems 10-point ROS is otherwise unremarkable General: Fever, Malaise Eyes: Unremarkable ENT: Unremarkable Respiratory: Cough, Shortness of Breath, SOB with Excertion Cardiovascular: Unremarkable Gastrointestinal: Nausea, Diarrhea Genitourinary: Unremarkable Musculoskeletal: Unremarkable Integumentary: Unremarkable Neurological: Unremarkable Lymphatics: Unremarkable Physical Examination - Physical Exam General: Alert, In no apparent distress, Cooperative HEENT: Atraumatic, PERRLA, Mucous membr. moist/pink, EOMI, Sclerae nonicteric Neck: Supple, 2+ carotid pulse no bruit, No LAD, Without JVD or thyroid abnormality Respiratory: Diminished, Rhonchi/gurgles Cardiovascular: No edema, Regular rate/rhythm, Normal S1 S2 Gastrointestinal: Normal bowel sounds, No tenderness Musculoskeletal: No tenderness Integumentary: No rashes Neurological: Normal speech (labored), Normal strength at 5/5 x4 extr, Normal tone, Normal affect Lymphatics: No axilla or inguinal lymphadenopathy - Studies Laboratory Data (last 24 hrs) 04/09/21 13:55: PT 12.7 H, INR 1.10 04/09/21 13:55: WBC 10.30, Hgb 14.1, Hct 43.3, Plt Count 243 04/09/21 13:55: Sodium 136, Potassium 4.4, BUN 39 H, Creatinine 1.78 H, Glucose 370 H, Magnesium 2.8 H D, Total Bilirubin 0.6, AST 58 H, ALT 84 H, Alkaline Phosphatase 79 Assessment and Plan - Problems (Diagnosis) (1) Pneumonia due to COVID-19 virus Current Visit: Yes Status: Acute (2) T2DM (type 2 diabetes mellitus) Current Visit: Yes Status: Chronic Qualifiers: Diabetes mellitus care home insulin use: with watermelon harvesting supervisor use Diabetes mellitus complication status: with kidney complications Diabetes mellitus complication detail: with chronic kidney disease Chronic kidney disease stage: stage 3 (moderate) Chronic kidney disease stage 3 subtype: stage 3a (GFR 45- 59) Qualified Code(s): E11.22 - Type 2 diabetes mellitus with diabetic chronic kidney disease; N18.31 - Chronic kidney disease, stage 3a; Z79.4 - halfway (current) use of insulin (3) CAD (coronary artery disease) Current Visit: Yes Status: Chronic Qualifiers: Coronary Disease-Associated Artery/Lesion type: bypass graft [place] vs. transplanted heart: [place] heart Associated angina: without angina Qualified Code(s): I25.810 - Atherosclerosis of coronary artery bypass graft(s) without angina pectoris (4) HTN (hypertension) Current Visit: Yes Status: Chronic Qualifiers: Hypertension type: primary hypertension Qualified Code(s): I10 - Essential (primary) hypertension (5) CKD (chronic kidney disease) Current Visit: Yes Status: Chronic Qualifiers: Chronic kidney disease stage: stage 3 (moderate) Chronic kidney disease stage 3 subtype: stage 3a (GFR 45-59) Qualified Code(s): N18.31 - Chronic kidney disease, stage 3a - Plan crown presser consulted, respiratory therapy consulted continue O2 as needed, IV steroids, covid supplements daily CRP, ferritin, procalcitonin sliding scale insulin and accuchecks monitor kidney function reconcile and continue home medications DVT ppx Discharge Plan: Home Plan to discharge in: Greater than 2 days - Advance Directives Does patient have a Living Will: Yes Does patient have a Durable POA for Healthcare: No - Code Status/Comfort Care Code Status Assessed: Yes (full code ) Critical Care: No Time Spent Managing Pts Care (In Minutes): 70
[2021-04-09 22:40] VITALS: BMI 29.1
[2021-04-09] MEDS: METHYLPREDNISOLONE 40 MG INJ IV SCH (23:43)
[2021-04-09] MEDS: METOPROLOL XL 50 MG TAB PO SCH (23:43)
[2021-04-09] MEDS: INSULIN -REGULAR HUMAN 50 UNIT/0.5 ML ML SQ SCH (23:43)
[2021-04-09] MEDS ORDERED: GLUCAGON 1 MG/VIAL IM PRN (23:43)
[2021-04-09] MEDS: TICAGRELOR 90 MG TABLET PO SCH (23:43)
[2021-04-09] MEDS: ASCORBIC ACID 500 MG TABLET PO SCH (23:43)
[2021-04-09] MEDS ORDERED: ACETAMINOPHEN 500 MG TAB PO PRN (23:43)
[2021-04-09] MEDS ORDERED: ONDANSETRON 4 MG/2 ML VIAL IV PRN (23:43)
[2021-04-09] MEDS ORDERED: HYDRALAZINE HCL 20 MG/ML VIAL IV PRN (23:43)
[2021-04-09] MEDS ORDERED: D50W 25 GM/50 ML SYRINGE IV PRN (23:43)
[2021-04-10] MEDS ORDERED: METOPROLOL XL 50 MG TAB PO ONE
[2021-04-10] MEDS ORDERED: FAMOTIDINE 20 MG/2 ML VIAL IV ONE ×2 (00:01→08:38)
[2021-04-10] MEDS ORDERED: TICAGRELOR 90 MG TABLET PO ONE ×2 (00:01→08:37)
[2021-04-10 04:54] LABS: Absolute Lymphocytes (CBC) 0.3 K/uL (0.7-4.9); Hematocrit 43.8 % (39.6-49.0); Lymphocytes % 4.6 % (15.3-44.8); MPV 8.6 fL (7.6-11.3); RBC Red Blood Cell Count 4.76 M/uL (4.33-5.43)
[2021-04-10 05:16] LABS: Albumin 2.5 g/dL (3.4-5.0); Bilirubin Total 0.6 mg/dL (0.2-1.0); Ferritin 222.5 ng/mL (26-388); Magnesium 2.7 mg/dL (1.8-2.4); Phosphorus 3.2 mg/dL (2.5-4.9); Potassium 4.6 mmol/L (3.5-5.1); Protein, Total 8.6 g/dL (6.4-8.2)
[2021-04-10] MEDS: INSULIN -REGULAR HUMAN 50 UNIT/0.5 ML ML SQ SCH ×4 (07:30→21:00)
[2021-04-10] MEDS ORDERED: ASCORBIC ACID 500 MG TABLET ONE ×3 (08:36→08:39)
[2021-04-10] MEDS ORDERED: ZINC SULFATE 220 MG CAP ONE (08:37)
[2021-04-10] MEDS ORDERED: VITAMIN D 1000 UNIT TAB ONE (08:37)
[2021-04-10] MEDS ORDERED: ENOXAPARIN 40 MG/0.4 ML SQ ONE (08:38)
[2021-04-10] MEDS ORDERED: INSULIN -REGULAR HUMAN 50 UNIT/0.5 ML ML ONE ×3 (08:38→17:19)
[2021-04-10] MEDS ORDERED: METHYLPREDNISOLONE 125 MG INJ ONE ×2 (08:39)
[2021-04-10] MEDS: ENOXAPARIN 40 MG/0.4 ML SQ SCH (08:47)
[2021-04-10] MEDS: TICAGRELOR 90 MG TABLET PO SCH ×2 (08:47→21:00)
[2021-04-10] MEDS: FAMOTIDINE 20 MG/2 ML VIAL IV SCH (08:48)
[2021-04-10] MEDS: ASCORBIC ACID 500 MG TABLET PO SCH ×2 (08:48→21:03)
[2021-04-10] MEDS: METHYLPREDNISOLONE 40 MG INJ IV SCH ×2 (08:48→21:04)
[2021-04-10] MEDS: VITAMIN D 1000 UNIT TAB PO SCH (08:48)
[2021-04-10] MEDS: ZINC SULFATE 220 MG CAP PO SCH (08:48)
[2021-04-10] MEDS ORDERED: TICAGRELOR 90 MG TABLET PO SCH (09:34)
[2021-04-10] MEDS ORDERED: INSULIN GLARGINE 100 UNIT/ML SQ SCH (09:39)
[2021-04-10] MEDS ORDERED: INSULIN GLARGINE 100 UNIT/ML SQ ONE (10:59)
--- NOTE | 2021-04-10 13:03 | P.CNS ---
Date of Consult: 04/10/21 Reason for Consult: Coronavirus pneumonia Primary Care Provider: Marie Chief Complaint: covid pneumonia History of Present Illness: Patient is 71 years of age metabolic syndrome chronic renal disease has been sick with coronavirus pneumonia his also got sick tested positive came in hypoxemic he is doing somewhat better still has cough shortness of breath Allergies codeine [Codeine] Allergy (Intermediate, Verified 12/08/11 11:33) Itching Home Medications: Amoxicillin/Potassium Clav [Amox-Clav 875-125 mg Tablet] 1 each PO Q12HR 04/10/21 Aspirin [Phoebe Chewable] 81 mg PO DAILY 04/10/21 Atorvastatin Calcium [Lipitor] 80 mg PO BEDTIME 04/10/21 Ergocalciferol (Vitamin D2) [Vitamin D2] 1,250 mcg PO DIRECTED 04/10/21 Ezetimibe 10 mg PO DAILY 04/10/21 Famotidine 20 mg PO Q12HR 04/10/21 Glipizide [Glipizide ER] 10 mg PO DAILY 04/10/21 Isosorbide Mononitrate [Isosorbide Mononitrate ER] 60 mg PO DAILY 04/10/21 Lisinopril [Zestril] 40 mg PO DAILY 04/10/21 Metoprolol Succinate 100 mg PO DAILY 04/10/21 Montelukast [Singulair] 10 mg PO DIRECTED 04/10/21 Nitroglycerin 0.4 mg SL DIRECTED 04/10/21 Omeprazole 20 mg PO DAILY 04/10/21 Ticagrelor [Brilinta] 90 mg PO BID 04/10/21 hydroCHLOROthiazide [Hydrochlorothiazide] 12.5 mg PO DAILY 04/10/21 - Past Medical/Surgical History -: DM -: CAD -: HTN -: CKD -: triple bypass surgery -: cardiac stents - Social History Alcohol use: No CD- Drugs: No Caffeine use: Yes Place of Residence: Home Review of Systems General: Weakness Respiratory: Cough, Shortness of Breath Physical Examination Temp Pulse Resp BP Pulse Ox 98.2 F 67 18 157/76 H 99 04/10/21 08:00 04/10/21 08:00 04/10/21 08:00 04/10/21 08:00 04/10/21 08:00 General: Alert, Oriented x3, Mild distress Respiratory: Clear to auscultation bilaterally, Diminished Laboratory Data (last 24 hrs) 04/09/21 13:55: PT 12.7 H, INR 1.10 04/09/21 13:55: WBC 10.30, Hgb 14.1, Hct 43.3, Plt Count 243 04/09/21 13:55: Sodium 136, Potassium 4.4, BUN 39 H, Creatinine 1.78 H, Glucose 370 H, Magnesium 2.8 H D, Total Bilirubin 0.6, AST 58 H, ALT 84 H, Alkaline Phosphatase 79 - Problems (1) Pneumonia due to COVID-19 virus Current Visit: Yes Status: Acute Plan: Patient is 71 years of age admitted with pneumonia due to coronavirus he has mild bilateral groundglass changes oxygenation satisfactory labs reviewed patient has chronic renal failure continue with present therapy possible discharge in 1 to 2 days
--- NOTE | 2021-04-10 17:20 | P.PN ---
Subjective Date of Service: 04/10/21 Primary Care Provider: Marie Chief Complaint: covid pneumonia Patient is stable on 2 to 3 L of oxygen by nasal cannula. He has no new complaint. He denies shortness of breath. Physical Examination - Vital Signs Temperature: 97.6 F Blood Pressure: 136/82 Pulse: 60 Respirations: 18 Pulse Ox (%): 94 - Physical Exam General: Alert, In no apparent distress, Oriented x3 HEENT: Other (Oxygen by nasal cannula) Respiratory: Crackles/rales Cardiovascular: No edema, Regular rate/rhythm, Normal S1 S2 Gastrointestinal: Soft and benign, Non-distended, No tenderness Musculoskeletal: No swelling Integumentary: No rashes, No cyanosis Neurological: Normal strength at 5/5 x4 extr Assessment And Plan - Current Problems (Diagnosis) (1) Pneumonia due to COVID-19 virus Current Visit: Yes Status: Acute (2) HTN (hypertension) Current Visit: Yes Status: Chronic Qualifiers: Hypertension type: primary hypertension Qualified Code(s): I10 - Essential (primary) hypertension (3) T2DM (type 2 diabetes mellitus) Current Visit: Yes Status: Chronic Qualifiers: Diabetes mellitus terminal supervisor insulin use: with terminal supervisor use Diabetes mellitus complication status: with kidney complications Diabetes mellitus complication detail: with chronic kidney disease Chronic kidney disease stage: stage 3 (moderate) Chronic kidney disease stage 3 subtype: stage 3a (GFR 45- 59) Qualified Code(s): E11.22 - Type 2 diabetes mellitus with diabetic chronic kidney disease; N18.31 - Chronic kidney disease, stage 3a; Z79.4 - half-way (current) use of insulin (4) CKD (chronic kidney disease) Current Visit: Yes Status: Chronic Qualifiers: Chronic kidney disease stage: stage 3 (moderate) Chronic kidney disease stage 3 subtype: stage 3a (GFR 45-59) Qualified Code(s): N18.31 - Chronic kidney disease, stage 3a - Plan Continue IV steroid. Vitamin and zinc supplementation. Titrate oxygen. Monitor inflammatory markers. Pulmonary input appreciated. Continue other home medications. Insulin sliding scale and Lantus insulin for glucose management. Titrate Lantus insulin for steroid-induced hyperglycemia.
[2021-04-10] MEDS: ATORVASTATIN 80 MG TAB PO SCH (21:00)
[2021-04-10] MEDS: INSULIN GLARGINE 100 UNIT/ML SQ SCH (21:00)
[2021-04-10] MEDS: METOPROLOL XL 50 MG TAB PO SCH (21:01)
[2021-04-11 06:29] LABS: Absolute Lymphocytes (CBC) 0.3 K/uL (0.7-4.9); Hematocrit 42.8 % (39.6-49.0); Lymphocytes % 2.1 % (15.3-44.8); MPV 8.4 fL (7.6-11.3); RBC Red Blood Cell Count 4.69 M/uL (4.33-5.43)
[2021-04-11 07:06] LABS: Ferritin 202.4 ng/mL (26-388); Potassium 4.5 mmol/L (3.5-5.1)
[2021-04-11] MEDS: INSULIN GLARGINE 100 UNIT/ML SQ SCH ×2 (08:51→20:19)
[2021-04-11] MEDS: INSULIN -REGULAR HUMAN 50 UNIT/0.5 ML ML SQ SCH ×4 (08:51→20:18)
[2021-04-11] MEDS: hydroCHLOROthiazide 12.5 MG CAP PO SCH (08:52)
[2021-04-11] MEDS: TICAGRELOR 90 MG TABLET PO SCH ×2 (08:53→21:00)
[2021-04-11] MEDS: ENOXAPARIN 40 MG/0.4 ML SQ SCH (08:53)
[2021-04-11] MEDS: EZETIMIBE 10 MG TAB PO SCH (08:53)
[2021-04-11] MEDS: ZINC SULFATE 220 MG CAP PO SCH (08:54)
[2021-04-11] MEDS: ASCORBIC ACID 500 MG TABLET PO SCH ×2 (08:54→20:15)
[2021-04-11] MEDS: MONTELUKAST 10 MG TAB PO SCH (08:54)
[2021-04-11] MEDS: FAMOTIDINE 20 MG/2 ML VIAL IV SCH (08:54)
[2021-04-11] MEDS: ASPIRIN 81 MG CHEWABLE TABLET PO SCH (08:54)
[2021-04-11] MEDS: PANTOPRAZOLE 40MG TABLET PO SCH (08:54)
[2021-04-11] MEDS: ISOSORBIDE MONO SR 60 MG TAB PO SCH (08:55)
[2021-04-11] MEDS: VITAMIN D 1000 UNIT TAB PO SCH (08:55)
[2021-04-11] MEDS: lisinopriL 20 MG TAB PO SCH (08:55)
[2021-04-11] MEDS: METHYLPREDNISOLONE 40 MG INJ IV SCH (08:55)
[2021-04-11] MEDS ORDERED: HOME MED 1 EA UNK (Omeprazole [Omeprazole] 20 MG Capsule.Dr) PO SCH (09:00)
[2021-04-11] MEDS ORDERED: METOPROLOL XL 100 MG TAB PO SCH (09:00)
[2021-04-11 09:58] LABS: White Blood Cell Scan OK (OK)
[2021-04-11 09:59] LABS: Blood Morphology Comment NOT SEEN (NOT SEEN); Platelet Estimate ADEQ
--- NOTE | 2021-04-11 10:43 | P.PN ---
Subjective Date of Service: 04/11/21 Primary Care Provider: Salazar Chief Complaint: covid pneumonia Subjective: Improving (Patient is doing well on minimal oxygen no new complaint) Review of Systems General: Weakness Respiratory: Shortness of Breath Physical Examination - Vital Signs Temperature: 97.1 F Blood Pressure: 118/64 Pulse: 60 Respirations: 18 Pulse Ox (%): 93 - Physical Exam General: Alert, In no apparent distress, Oriented x3 Assessment & Plan - Problems (Diagnosis) (1) Pneumonia due to COVID-19 virus Current Visit: Yes Status: Acute Plan: Patient is doing well oxygenation satisfactory plan to discharge home on prednisone 20 mg twice a day for a week then 10 twice a day with low-dose aspirin
--- NOTE | 2021-04-11 12:57 | P.PN ---
Subjective Date of Service: 04/11/21 Primary Care Provider: Marie Chief Complaint: covid pneumonia Patient is stable 3 L oxygen by nasal cannula. Blood sugar readings are elevated. Patient has no complaint and denies shortness of breath. Physical Examination - Vital Signs Temperature: 97.2 F Blood Pressure: 116/70 Pulse: 63 Respirations: 18 Pulse Ox (%): 94 - Physical Exam General: Alert, In no apparent distress, Oriented x3 HEENT: Mucous membr. moist/pink Neck: JVD not distended Respiratory: Crackles/rales (Bilateral) Cardiovascular: No edema, Regular rate/rhythm, Normal S1 S2 Gastrointestinal: Soft and benign, Non-distended Musculoskeletal: No swelling Integumentary: No rashes, No cyanosis Neurological: Normal strength at 5/5 x4 extr Assessment And Plan - Current Problems (Diagnosis) (1) Pneumonia due to COVID-19 virus Current Visit: Yes Status: Acute (2) HTN (hypertension) Current Visit: Yes Status: Chronic Qualifiers: Hypertension type: primary hypertension Qualified Code(s): I10 - Essential (primary) hypertension (3) T2DM (type 2 diabetes mellitus) Current Visit: Yes Status: Chronic Qualifiers: Diabetes mellitus penitentiary insulin use: with penitentiary use Diabetes mellitus complication status: with kidney complications Diabetes mellitus complication detail: with chronic kidney disease Chronic kidney disease stage: stage 3 (moderate) Chronic kidney disease stage 3 subtype: stage 3a (GFR 45- 59) Qualified Code(s): E11.22 - Type 2 diabetes mellitus with diabetic chronic kidney disease; N18.31 - Chronic kidney disease, stage 3a; Z79.4 - director long term care (current) use of insulin (4) CKD (chronic kidney disease) Current Visit: Yes Status: Chronic Qualifiers: Chronic kidney disease stage: stage 3 (moderate) Chronic kidney disease stage 3 subtype: stage 3a (GFR 45-59) Qualified Code(s): N18.31 - Chronic kidney disease, stage 3a - Plan Continue IV steroid. Vitamin and zinc supplementation. Monitor inflammatory markers. Seen by pulmonary. Continue other home medications. Insulin sliding scale. Titrate Lantus insulin for hyperglycemia Arrange for home oxygen.
[2021-04-11] MEDS ORDERED: INSULIN GLARGINE 100 UNIT/ML SQ ONE (15:00)
[2021-04-11 15:16] LABS: Urine Appearance CLEAR (Clear); Urine Bilirubin NEGATIVE (Negative); Urine Blood NEGATIVE (Negative); Urine Color YELLOW (Yellow); Urine Glucose 3+ (Negative); Urine Protein 1+ (Negative); Urine Specific Gravity >=1.030 (1.005-1.030); Urine Urobilinogen 0.2 mg/dL (0.2-1.0); Urine pH 5.5 (5.0-7.0)
[2021-04-11 15:22] LABS: Urine Microscopic Reflex ORDER UMIC
[2021-04-11 16:06] LABS: Urine Bacteria <20 /HPF (NONE SEEN); Urine Mucus 2+ /HPF (NONE SEEN); Urine RBC <5 /HPF (NONE SEEN)
[2021-04-11 16:16] LABS: C-Reactive Protein 50.7 mg/L (<3.00)
[2021-04-11] MEDS: METOPROLOL XL 50 MG TAB PO SCH (20:16)
[2021-04-11] MEDS: predniSONE 20 MG TAB PO SCH (20:16)
[2021-04-11] MEDS: ATORVASTATIN 80 MG TAB PO SCH (20:16)
[2021-04-11] MEDS ORDERED: INSULIN GLARGINE 100 UNIT/ML SQ SCH (21:00)
[2021-04-12 06:33] LABS: Absolute Lymphocytes (CBC) 0.3 K/uL (0.7-4.9); Hematocrit 40.4 % (39.6-49.0); Lymphocytes % 2.2 % (15.3-44.8); MPV 8.7 fL (7.6-11.3); RBC Red Blood Cell Count 4.45 M/uL (4.33-5.43)
[2021-04-12 07:00] LABS: C-Reactive Protein 14.1 mg/L (<3.00); Ferritin 182.3 ng/mL (26-388); Potassium 4.4 mmol/L (3.5-5.1)
[2021-04-12] MEDS ORDERED: D50W 25 GM/50 ML SYRINGE IV PRN (08:13)
[2021-04-12] MEDS ORDERED: GLUCAGON 1 MG/VIAL IM PRN (08:13)
[2021-04-12] MEDS: TICAGRELOR 90 MG TABLET PO SCH ×2 (08:52→21:06)
[2021-04-12] MEDS: ISOSORBIDE MONO SR 60 MG TAB PO SCH (08:53)
[2021-04-12] MEDS: ASCORBIC ACID 500 MG TABLET PO SCH ×2 (08:54→21:06)
[2021-04-12] MEDS: ZINC SULFATE 220 MG CAP PO SCH (08:54)
[2021-04-12] MEDS: hydroCHLOROthiazide 12.5 MG CAP PO SCH (08:54)
[2021-04-12] MEDS: lisinopriL 20 MG TAB PO SCH (08:55)
[2021-04-12] MEDS: ASPIRIN 81 MG CHEWABLE TABLET PO SCH (08:55)
[2021-04-12] MEDS: EZETIMIBE 10 MG TAB PO SCH (08:55)
[2021-04-12] MEDS: INSULIN -REGULAR HUMAN 50 UNIT/0.5 ML ML SQ SCH ×7 (08:56→21:06)
[2021-04-12] MEDS: ENOXAPARIN 40 MG/0.4 ML SQ SCH (08:58)
[2021-04-12] MEDS: VITAMIN D 1000 UNIT TAB PO SCH (09:00)
[2021-04-12] MEDS: PANTOPRAZOLE 40MG TABLET PO SCH (09:10)
[2021-04-12] MEDS: predniSONE 20 MG TAB PO SCH ×2 (09:10→21:06)
[2021-04-12] MEDS: INSULIN GLARGINE 100 UNIT/ML SQ SCH ×2 (09:14→21:00)
--- NOTE | 2021-04-12 13:05 | P.PN ---
Subjective Date of Service: 04/12/21 Primary Care Provider: Marie Chief Complaint: covid pneumonia Has no complaint today and wishes to go home. His oxygen requirement has increased to 5 L by nasal cannula. Blood sugar readings elevated but better compared to previous days. Physical Examination - Vital Signs Temperature: 97.2 F Blood Pressure: 115/59 Pulse: 63 Respirations: 16 Pulse Ox (%): 96 - Physical Exam General: Alert, In no apparent distress, Oriented x3 Neck: JVD not distended Respiratory: Crackles/rales, Other (Nonlabored breathing) Cardiovascular: Regular rate/rhythm, Normal S1 S2 Gastrointestinal: Soft and benign, Non-distended Musculoskeletal: No tenderness Integumentary: No rashes, No cyanosis Neurological: Normal strength at 5/5 x4 extr Assessment And Plan - Current Problems (Diagnosis) (1) Pneumonia due to COVID-19 virus Current Visit: Yes Status: Acute (2) HTN (hypertension) Current Visit: Yes Status: Chronic Qualifiers: Hypertension type: primary hypertension Qualified Code(s): I10 - Essential (primary) hypertension (3) T2DM (type 2 diabetes mellitus) Current Visit: Yes Status: Chronic Qualifiers: Diabetes mellitus assisted insulin use: with technician terminal and repeater use Diabetes mellitus complication status: with kidney complications Diabetes mellitus complication detail: with chronic kidney disease Chronic kidney disease stage: stage 3 (moderate) Chronic kidney disease stage 3 subtype: stage 3a (GFR 45- 59) Qualified Code(s): E11.22 - Type 2 diabetes mellitus with diabetic chronic kidney disease; N18.31 - Chronic kidney disease, stage 3a; Z79.4 - [facility] (current) use of insulin (4) CKD (chronic kidney disease) Current Visit: Yes Status: Chronic Qualifiers: Chronic kidney disease stage: stage 3 (moderate) Chronic kidney disease stage 3 subtype: stage 3a (GFR 45-59) Qualified Code(s): N18.31 - Chronic kidney disease, stage 3a - Plan Continue IV steroid. Vitamin and zinc supplementation. Monitor inflammatory markers. Seen by pulmonary. Continue other home medications. Lantus insulin titrated to 30 units twice daily. Patient takes 20 units Humalog before meals which is resumed. Also on insulin sliding scale. Wean oxygen as tolerated.
[2021-04-12] MEDS: METOPROLOL XL 50 MG TAB PO SCH (21:06)
[2021-04-12] MEDS: ATORVASTATIN 80 MG TAB PO SCH (21:06)
[2021-04-13 04:04] LABS: Absolute Lymphocytes (CBC) 0.4 K/uL (0.7-4.9); Hematocrit 38.9 % (39.6-49.0); Lymphocytes % 3.3 % (15.3-44.8); MPV 8.2 fL (7.6-11.3)
[2021-04-13 04:19] LABS: Potassium 4.1 mmol/L (3.5-5.1)
[2021-04-13] MEDS: INSULIN -REGULAR HUMAN 50 UNIT/0.5 ML ML SQ SCH ×7 (07:30→21:27)
[2021-04-13] MEDS: predniSONE 10 MG TAB ONE ×2 (08:31→09:30)
--- NOTE | 2021-04-13 08:39 | P.PN ---
Subjective Date of Service: 04/13/21 Primary Care Provider: Marie Chief Complaint: covid pneumonia Patient still requiring 4 to 5 L of nasal cannula oxygen condition stable no change Review of Systems General: Weakness Respiratory: Shortness of Breath Physical Examination - Vital Signs Temperature: 98.1 F Blood Pressure: 136/72 Pulse: 59 Respirations: 19 Pulse Ox (%): 95 - Physical Exam General: Alert, In no apparent distress, Oriented x2 Assessment & Plan - Problems (Diagnosis) (1) Pneumonia due to COVID-19 virus Current Visit: Yes Status: Acute Plan: Respiratory failure from coronavirus continue to titrate oxygen level down he is on 5 L today renal function has improved continue with present treatment vital signs otherwise stable
[2021-04-13] MEDS: predniSONE 20 MG TAB PO SCH ×2 (09:00→21:26)
[2021-04-13] MEDS: TICAGRELOR 90 MG TABLET PO SCH ×2 (09:28→21:26)
[2021-04-13] MEDS: hydroCHLOROthiazide 12.5 MG CAP PO SCH (09:28)
[2021-04-13] MEDS: EZETIMIBE 10 MG TAB PO SCH (09:28)
[2021-04-13] MEDS: PANTOPRAZOLE 40MG TABLET PO SCH (09:29)
[2021-04-13] MEDS: ASPIRIN 81 MG CHEWABLE TABLET PO SCH (09:29)
[2021-04-13] MEDS: lisinopriL 20 MG TAB PO SCH (09:29)
[2021-04-13] MEDS: MONTELUKAST 10 MG TAB PO SCH (09:29)
[2021-04-13] MEDS: ASCORBIC ACID 500 MG TABLET PO SCH ×2 (09:29→21:27)
[2021-04-13] MEDS: VITAMIN D 1000 UNIT TAB PO SCH (09:29)
[2021-04-13] MEDS: ZINC SULFATE 220 MG CAP PO SCH (09:29)
[2021-04-13] MEDS: ENOXAPARIN 40 MG/0.4 ML SQ SCH (09:30)
[2021-04-13] MEDS: ISOSORBIDE MONO SR 60 MG TAB PO SCH (09:30)
[2021-04-13] MEDS: INSULIN GLARGINE 100 UNIT/ML SQ SCH ×2 (09:32→21:00)
--- NOTE | 2021-04-13 14:20 | P.PN ---
Subjective Date of Service: 04/13/21 Primary Care Provider: Salazar Chief Complaint: covid pneumonia Has no complaint and wishes to go home today. He is currently tolerating 4 L by nasal cannula. Physical Examination - Vital Signs Temperature: 97.4 F Blood Pressure: 92/57 Pulse: 63 Respirations: 16 Pulse Ox (%): 91 - Physical Exam General: Alert, In no apparent distress HEENT: Mucous membr. moist/pink Neck: JVD not distended Respiratory: Crackles/rales Cardiovascular: No edema, Regular rate/rhythm, Normal S1 S2 Gastrointestinal: Soft and benign, Non-distended Musculoskeletal: No swelling Integumentary: No rashes Neurological: Normal strength at 5/5 x4 extr Assessment And Plan - Current Problems (Diagnosis) (1) Pneumonia due to COVID-19 virus Current Visit: Yes Status: Acute (2) HTN (hypertension) Current Visit: Yes Status: Chronic Qualifiers: Hypertension type: primary hypertension Qualified Code(s): I10 - Essential (primary) hypertension (3) T2DM (type 2 diabetes mellitus) Current Visit: Yes Status: Chronic Qualifiers: Diabetes mellitus [facility] insulin use: with [facility] use Diabetes mellitus complication status: with kidney complications Diabetes mellitus complication detail: with chronic kidney disease Chronic kidney disease stage: stage 3 (moderate) Chronic kidney disease stage 3 subtype: stage 3a (GFR 45- 59) Qualified Code(s): E11.22 - Type 2 diabetes mellitus with diabetic chronic kidney disease; N18.31 - Chronic kidney disease, stage 3a; Z79.4 - residential (current) use of insulin (4) CKD (chronic kidney disease) Current Visit: Yes Status: Chronic Qualifiers: Chronic kidney disease stage: stage 3 (moderate) Chronic kidney disease stage 3 subtype: stage 3a (GFR 45-59) Qualified Code(s): N18.31 - Chronic kidney disease, stage 3a - Plan Continue IV steroid. Vitamin and zinc supplementation. Monitor inflammatory markers. Seen by pulmonary. Continue other home medications. Increase Lantus insulin to 35 units twice a day. Continue 20 units Humalog before meals which is resumed. Also on insulin sliding scale. Wean oxygen as tolerated. Patient is currently tolerating 4 L of O2 by nasal cannula. Home oxygen being arranged.
--- NOTE | 2021-04-13 16:42 | P.DS ---
Admission Date: 04/09/21 Discharge Date: 04/13/21 Primary Care Provider: Marie Reason for Admission: covid pneumonia - Problems (1) Pneumonia due to COVID-19 virus Current Visit: Yes Status: Acute (2) HTN (hypertension) Current Visit: Yes Status: Chronic Qualifiers: Hypertension type: primary hypertension Qualified Code(s): I10 - Essential (primary) hypertension (3) T2DM (type 2 diabetes mellitus) Current Visit: Yes Status: Chronic Qualifiers: Diabetes mellitus terminal manager insulin use: with senior living use Diabetes mellitus complication status: with kidney complications Diabetes mellitus complication detail: with chronic kidney disease Chronic kidney disease stage: stage 3 (moderate) Chronic kidney disease stage 3 subtype: stage 3a (GFR 45- 59) Qualified Code(s): E11.22 - Type 2 diabetes mellitus with diabetic chronic kidney disease; N18.31 - Chronic kidney disease, stage 3a; Z79.4 - terminal manager (current) use of insulin (4) CKD (chronic kidney disease) Current Visit: Yes Status: Chronic Qualifiers: Chronic kidney disease stage: stage 3 (moderate) Chronic kidney disease stage 3 subtype: stage 3a (GFR 45-59) Qualified Code(s): N18.31 - Chronic kidney disease, stage 3a Brief History of Present Illness: Mr. Andre is a 71 yo M with T2DM, CAD, HTN, CKD who presents with two weeks of fever and SOB. He also reported sore throat, fatigue, nausea, and diarrhea. He tested positive for COVID at [place] and was referred to the emergency department due to hypoxia. Upon arrival, his oxygen saturations were 84% on room air, and decreased to 69% upon ambulation. At bedside, his sats were 100% on 4L. BUN 39 Cr 1.78 GFR 46 Glu 370 AST 58 ALT 84 BNP 142. Checks x-ray demonstrated bilateral pulmonary infiltrates. CTA thorax demonstrated bilateral groundglass opacities and paraseptal emphysema. Patient diagnosed with Covid pneumonia and admitted for further management. Hospital Course: Patient admitted to the medical floor and started on Covid treatment protocol with IV steroid, vitamin and zinc supplementation and inflammatory markers monitored. Patient seen and evaluated by pulmonary-Dr. Paul. IV steroid taper down to oral prednisone 20 mg twice daily. Patient's oxygen requirement decreased and now tolerating 2 L by nasal cannula. He has shown clinical improvement and deemed stable for discharge. He is discharged with home oxygen and a tapering dose of oral prednisone. His home Lantus dose has been titrated up to 35 units twice a day to cover steroid-induced hyperglycemia. Vital Signs/Physical Exam: Temp Pulse Resp BP Pulse Ox 97.4 F 63 16 92/57 L 91 04/13/21 14:20 04/13/21 14:20 04/13/21 14:20 04/13/21 14:20 04/13/21 14:20 General: Alert, In no apparent distress, Oriented x3 HEENT: Mucous membr. moist/pink, Sclerae nonicteric Neck: JVD not distended Respiratory: Other (Nonlabored breathing) Cardiovascular: No edema, Regular rate/rhythm, Normal S1 S2 Gastrointestinal: Soft and benign, Non-distended Musculoskeletal: No swelling Integumentary: No rashes Neurological: Normal strength at 5/5 x4 extr Laboratory Data at Discharge: WBC 11.90 K/uL (4.3-10.9) H 04/13/21 03:47 Hgb 12.9 g/dL (13.6-17.9) L 04/13/21 03:47 Hct 38.9 % (39.6-49.0) L 04/13/21 03:47 Plt Count 249 K/uL (152-406) 04/13/21 03:47 PT 12.7 SECONDS (9.5-12.5) H 04/09/21 13:55 INR 1.10 04/09/21 13:55 Sodium 136 mmol/L (136-145) 04/13/21 03:47 Potassium 4.1 mmol/L (3.5-5.1) 04/13/21 03:47 BUN 41 mg/dL (7-18) H 04/13/21 03:47 Creatinine 1.50 mg/dL (0.55-1.3) H 04/13/21 03:47 Glucose 230 mg/dL (74-106) H 04/13/21 03:47 Phosphorus 3.2 mg/dL (2.5-4.9) 04/10/21 04:43 Magnesium 2.7 mg/dL (1.8-2.4) H 04/10/21 04:43 Total Bilirubin 0.6 mg/dL (0.2-1.0) 04/10/21 04:43 AST 35 U/L (15-37) 04/10/21 04:43 ALT 80 U/L (12-78) H 04/10/21 04:43 Alkaline Phosphatase 83 U/L (45-117) 04/10/21 04:43 Triglycerides 78 mg/dL (<150) 04/10/21 04:43 Cholesterol 101 mg/dL (<200) 04/10/21 04:43 HDL Cholesterol 36 mg/dL (40-60) L 04/10/21 04:43 Cholesterol/HDL Ratio 2.81 04/10/21 04:43 Home Medications: Aspirin [Phoebe Chewable Aspirin] 81 mg PO DAILY 04/10/21 Atorvastatin Calcium [Lipitor] 80 mg PO BEDTIME 04/10/21 Ezetimibe 10 mg PO DAILY 04/10/21 Glipizide [Glipizide ER] 10 mg PO DAILY 04/10/21 Isosorbide Mononitrate [Isosorbide Mononitrate ER] 60 mg PO DAILY 04/10/21 Lisinopril [Zestril] 40 mg PO DAILY 04/10/21 Metoprolol Succinate 100 mg PO DAILY 04/10/21 Montelukast [Singulair*] 10 mg PO DIRECTED 04/10/21 Nitroglycerin 0.4 mg SL DIRECTED 04/10/21 Omeprazole 20 mg PO DAILY 04/10/21 Ticagrelor [Brilinta*] 90 mg PO BID 04/10/21 hydroCHLOROthiazide [Hydrochlorothiazide] 12.5 mg PO DAILY 04/10/21 Ascorbic Acid [Vitamin C*] 1,000 mg PO BID #120 tablet 04/13/21 Cholecalciferol (Vitamin D3) [Vitamin D3] 4,000 unit PO DAILY #60 capsule 04/13/21 Insulin -Regular Human [Novolin -R*] 20 unit SQ ACHS ml 04/13/21 Insulin Glargine,Hum.rec.anlog [Semglee] 35 unit SQ BID ml 04/13/21 Zinc Sulfate [Zinc Sulfate*] 220 mg PO DAILY #30 cap 04/13/21 predniSONE [Prednisone*] 20 mg PO BID #15 tab 04/13/21 New Medications: predniSONE [Prednisone*] 20 mg PO BID #15 tab Ascorbic Acid [Vitamin C*] 1,000 mg PO BID #120 tablet Cholecalciferol (Vitamin D3) [Vitamin D3] 4,000 unit PO DAILY #60 capsule Zinc Sulfate [Zinc Sulfate*] 220 mg PO DAILY #30 cap Diet: ADA Activity: Ad demian Followup: Brandin Paul MD [ACTIVE - CAN ADMIT] - 1 Week NONE,NONE [Primary Care Provider] - Time spent managing pt's care (in minutes): 35
[2021-04-13] MEDS: METOPROLOL XL 50 MG TAB PO SCH (21:00)
[2021-04-13] MEDS: ATORVASTATIN 80 MG TAB PO SCH (21:26)
[2021-04-14 03:49] LABS: Absolute Lymphocytes (CBC) 0.2 K/uL (0.7-4.9); Hematocrit 41.2 % (39.6-49.0); Lymphocytes % 2.3 % (15.3-44.8); MPV 8.6 fL (7.6-11.3); RBC Red Blood Cell Count 4.48 M/uL (4.33-5.43)
[2021-04-14 04:04] LABS: Potassium 3.9 mmol/L (3.5-5.1)
[2021-04-14 04:52] VITALS: TEMP 97.4
[2021-04-14] MEDS: EZETIMIBE 10 MG TAB PO SCH (08:25)
[2021-04-14] MEDS: ISOSORBIDE MONO SR 60 MG TAB PO SCH (08:25)
[2021-04-14] MEDS: ENOXAPARIN 40 MG/0.4 ML SQ SCH (08:25)
[2021-04-14] MEDS: TICAGRELOR 90 MG TABLET PO SCH (08:25)
[2021-04-14] MEDS: VITAMIN D 1000 UNIT TAB PO SCH (08:25)
[2021-04-14] MEDS: predniSONE 20 MG TAB PO SCH (08:26)
[2021-04-14] MEDS: PANTOPRAZOLE 40MG TABLET PO SCH (08:26)
[2021-04-14] MEDS: hydroCHLOROthiazide 12.5 MG CAP PO SCH (08:26)
[2021-04-14] MEDS: ASPIRIN 81 MG CHEWABLE TABLET PO SCH (08:26)
[2021-04-14] MEDS: ZINC SULFATE 220 MG CAP PO SCH (08:26)
[2021-04-14 08:27] VITALS: BP 115/67
[2021-04-14] MEDS: ASCORBIC ACID 500 MG TABLET PO SCH (08:27)
[2021-04-14] MEDS: lisinopriL 20 MG TAB PO SCH (08:27)
[2021-04-14] MEDS: INSULIN -REGULAR HUMAN 50 UNIT/0.5 ML ML SQ SCH ×2 (08:27→12:40)
[2021-04-14] MEDS: INSULIN GLARGINE 100 UNIT/ML SQ SCH (08:28)
--- NOTE | 2021-04-14 12:03 | P.PN ---
Subjective Date of Service: 04/14/21 Primary Care Provider: Salazar Chief Complaint: covid pneumonia Patient is doing better no new complaints he is down to less than 4 L of nasal cannula oxygen Review of Systems General: Weakness Respiratory: Shortness of Breath Physical Examination - Vital Signs Temperature: 97.4 F Blood Pressure: 115/67 Pulse: 72 Respirations: 16 Pulse Ox (%): 92 - Physical Exam General: Alert, In no apparent distress, Oriented x3 Assessment & Plan - Problems (Diagnosis) (1) Pneumonia due to COVID-19 virus Current Visit: Yes Status: Acute Plan: Patient is doing much better he is down to less than 4 L of oxygen subjectively has improved plan to discharge home on O2 renal function stable discharge continue with prednisone at home
[2021-04-14 12:16] VITALS: O2SAT 97
--- NOTE | 2021-04-14 18:16 | P.PN ---
Date of Service: 04/14/21 Please see updated discharge summary dated on 04/13/2021 Patient blood glucose improved, denied any new symptoms. Remained stable on 2 L nasal cannula Discharged home with home oxygen this morning.
== END 2021-04-14 15:20 | disposition home or self-care (01) | DRG 177 ==
LOC: ER 13:17 → ERHOLD 17:40 → 4TH 04-10 18:44
PROVIDERS: ADMIT Internal Medicine; ATTEND Hospitalist
DX: U07.1 COVID-19 (principal); J12.82 Pneumonia due to coronavirus disease 2019; I25.810 Atherosclerosis of coronary artery bypass graft(s) without angina pectoris; I12.9 Hypertensive chronic kidney disease with stage 1 through stage 4 chronic kidney disease, or unspecified chronic kidney disease; N18.31 Chronic kidney disease, stage 3a; E11.22 Type 2 diabetes mellitus with diabetic chronic kidney disease; E11.65 Type 2 diabetes mellitus with hyperglycemia; T38.0X5A Adverse effect of glucocorticoids and synthetic analogues, initial encounter; Z79.82 Long term (current) use of aspirin; Z95.5 Presence of coronary angioplasty implant and graft; Z79.4 Long term (current) use of insulin; Z88.5 Allergy status to narcotic agent; Z79.84 Long term (current) use of oral hypoglycemic drugs; Z79.52 Long term (current) use of systemic steroids
CPT/HCPCS: 36415; 71045; 71250; 80048; 80053; 80061; 80076; 81003; 81015; 82728; 82947; 83631; 83735; 83880; 84100; 84484; 85025; 85379; 85610; 86140; 93005; 94760; 96374; 99285; J1100; J1650; J2920; J2930; J7512

== ENCOUNTER 2023-06-13 15:38 | Emergency (ER) | payer OTHER ==
--- OUTSIDE RECORDS SUMMARY | 2023-06-13 15:41 | XMS REPORT | Continuity of Care Document ---
Author Name Unknown Address [address] [place] [address] [employer] Address [address] [place] [address] Care Team Providers Care Mathematics Professor Name Role Phone Unavailable Unavailable Unavailable
[2023-06-13 16:09] LABS: Absolute Eosinophils 0.1 K/uL (0-0.5); Absolute Lymphocytes (CBC) 0.6 K/uL (0.7-4.9); Absolute Monocytes 0.7 K/uL (0.1-1.3); Basophils % 0.7 % (0-1.3); Eosinophils % 2.3 % (0-4.4); Hematocrit 39.4 % (39.6-49.0); Hemoglobin 13.3 g/dL (13.6-17.9); MCH 31.2 pg (27.0-35.0); MCHC 33.7 g/dL (32.0-36.0); MCV 92.6 fL (80-100); MPV 7.7 fL (7.6-11.3); Monocytes % 10.3 % (3.3-12.3); Neutrophils % 77.7 % (41.7-73.7); Platelets 217 thou/uL (152-406); RBC Red Blood Cell Count 4.25 M/uL (4.33-5.43); Red Cell Distribution Width 16.2 % (12.1-15.2)
[2023-06-13 16:21] LABS: Anion Gap 8.8 mEq/L (5.0-15.0); Potassium 3.8 mEq/L (3.5-5.1)
--- NOTE | 2023-06-13 19:15 | ER ---
Nurse's Notes [facility] Name: Heraclio Andre III Age: 73 yrs Sex: Male : 1950 Arrival Date: 06/13/2023 Time: 15:38 Bed 20 Private MD: Diagnosis: Hypoglycemia, unspecified Presentation: 06/12 15:49 Chief complaint: EMS states: low blood sugar. Coronavirus screen: Client denies travel cp4 out of the [place] in the last 14 days. At this time, the client does not indicate any symptoms associated with coronavirus-19. Ebola Screen: Patient negative for fever greater than or equal to 101.5 degrees Fahrenheit, and additional compatible Ebola Virus Disease symptoms Patient denies exposure to infectious person. Patient denies travel to an Ebola-affected area in the 21 days before illness onset. No symptoms or risks identified at this time. Initial Sepsis Screen: Does the patient meet any 2 criteria? No. Patient's initial sepsis screen is negative. Does the patient have a suspected source of infection? No. Patient's initial sepsis screen is negative. Risk Assessment: Do you want to hurt yourself or someone else? Patient reports no desire to harm self or others. Onset of symptoms was June 13, 2023. 15:49 Method Of Arrival: EMS: [facility] cp4 15:49 Acuity: MIGEL 3 cp4 Triage Assessment: 15:50 General: Appears in no apparent distress. Behavior is calm, cooperative, appropriate cp4 for age. Pain: Denies pain. Neuro: No deficits noted. Historical: - Allergies: 15:50 Codeine; cp4 - Home Meds: 15:50 aspirin 81 mg Oral TbEC 1 tab once daily [Active]; Novolog 100 unit/mL Sub-Q soln cp4 [Active]; - PMHx: 15:50 Diabetes - IDDM; cp4 - Immunization history:: Adult Immunizations up to date. - Infectious Disease History:: Denies. CDIFF, C. Auris, ESBL, MRSA (w/in 1 year), VRE (w/in 1 year), TB, . - Social history:: Smoking status: Patient denies any tobacco usage or history of. Screenin:52 [facility] ED Fall Risk Assessment (Adult) History of falling in the last 3 months, cp4 including since admission No falls in past 3 months (0 pts) Confusion or Disorientation No (0 pts) Intoxicated or Sedated No (0 pts) Impaired Gait No (0 pts) Mobility Assist Device Used No (0 pt) Altered Elimination No (0 pt) Score/Fall Risk Level 0 - 2 = Low Risk Oriented to surroundings, Maintained a safe environment, Assessed \T\ reinforced patient's understanding of fall precautions, Hourly rounding (assess needs \T\ fall precautionary measures) done. Abuse screen: Denies threats or abuse. Nutritional screening: No deficits noted. Tuberculosis screening: No symptoms or risk factors identified. Assessment: 15:52 Reassessment: No changes from previously documented assessment. cp4 16:23 Reassessment: No changes from previously documented assessment. Patient and/or family ll1 updated on plan of care and expected duration. Pain level reassessed. Patient is alert, oriented x 3, equal unlabored respirations, skin warm/dry/pink. Vital Signs: 15:49 BP 155 / 85; Pulse 81; Resp 18; Temp 98; Pulse Ox 95% ; Pain 0/10; cp4 17:00 BP 132 / 67; Pulse 80; Resp 18; Pulse Ox 100% ; cp4 18:00 BP 119 / 75; Pulse 81; Resp 18; Pulse Ox 100% ; cp4 15:49 Pain Scale: Adult cp4 ED Course: 15:46 Patient arrived in ED. cp4 15:47 Aliza Rehman is Primary Nurse. cp4 15:49 Andrew Thompson DO is Attending Physician. ms3 15:50 Triage completed. cp4 15:50 Arm band placed on right wrist. Patient placed in an exam room, on a stretcher. cp4 15:52 Bed in low position. Call light in reach. Side rails up X 1. cp4 16:02 Client placed on continuous cardiac and pulse oximetry monitoring. NIBP monitoring cp4 applied. 16:02 Glucose Sent. cp4 16:02 BMP Sent. cp4 16:02 CBC with Diff Sent. cp4 16:02 Initial lab(s) drawn, by me, sent to lab. Inserted saline lock: 20 gauge in right cp4 antecubital area, using aseptic technique. Blood collected. Patient maintains SpO2 saturation greater than 95% on room air. 19:52 Provided Education on: hypoglycemia. cp4 19:52 No provider procedures requiring assistance completed. intact, bleeding controlled, No cp4 redness/swelling at site. Pressure dressing applied. Administered Medications: No medications were administered Medication: 15:52 VIS not applicable for this client. cp4 Outcome: 19:14 Discharge ordered by . ms3 19:52 Discharged to home ambulatory, cp4 19:52 Condition: stable 19:52 Discharge instructions given to patient, Instructed on discharge instructions, follow up and referral plans. Demonstrated understanding of instructions, follow-up care, 19:53 Patient left the ED. cp4 Signatures: Kenya Rizzo RN RN ll1 Andrew Thompson DO DO ms3 Aliza Rehman cp4
--- NOTE | 2023-06-13 19:15 | EDPHYS ---
Physician Documentation [facility] Name: Heraclio Andre III Age: 73 yrs Sex: Male : 1950 Arrival Date: 06/13/2023 Time: 15:38 Bed 20 Private MD: ED Physician Andrew Thompson HPI: 06/12 15:52 This 73 yrs old Black Male presents to ER via EMS with complaints of Low Blood Sugar. ms3 15:52 73-year-old male with past medical history of diabetes, coronary artery disease, ms3 hypertension presents to the emergency department for hypoglycemia. On EMS arrival patient's blood glucose level was 42. They administered oral glucose and patient sugar increased to 57. Patient states when he woke this morning his blood sugar was 120 and he took his insulin and pills. Patient notes he did eat green eggs and toast for breakfast. Patient states he does not remember EMS arriving.. Historical: - Allergies: 15:50 Codeine; cp4 - Home Meds: 15:50 aspirin 81 mg Oral TbEC 1 tab once daily [Active]; Novolog 100 unit/mL Sub-Q soln cp4 [Active]; - PMHx: 15:50 Diabetes - IDDM; cp4 - Immunization history:: Adult Immunizations up to date. - Infectious Disease History:: Denies. CDIFF, C. Auris, ESBL, MRSA (w/in 1 year), VRE (w/in 1 year), TB, . - Social history:: Smoking status: Patient denies any tobacco usage or history of. ROS: 15:52 Constitutional: Negative for fever, and chills. Neck: Negative for injury, pain, and ms3 swelling, Cardiovascular: Negative for chest pain, and palpitations. Respiratory: Negative for shortness of breath, cough, wheezing, and pleuritic chest pain, Abdomen/GI: Negative for abdominal pain, nausea, vomiting, diarrhea, and constipation, MS/Extremity: Negative for injury and deformity, Skin: Negative for injury, rash, and discoloration, Exam: 15:52 Constitutional: This is a well developed, well nourished patient who is awake, alert, ms3 and in no acute distress. Head/Face: Normocephalic, atraumatic. Neck: Trachea midline, no cervical lymphadenopathy. Supple, full range of motion without nuchal rigidity, or vertebral point tenderness. No Meningismus. Chest/axilla: Normal chest wall appearance and motion. Nontender with no deformity. Cardiovascular: Regular rate and rhythm with a normal S1 and S2. No gallops, murmurs, or rubs. Normal PMI, no JVD. No pulse deficits. Respiratory: Lungs have equal breath sounds bilaterally, clear to auscultation and percussion. No rales, rhonchi or wheezes noted. No increased work of breathing, no retractions or nasal flaring. Abdomen/GI: Soft, non-tender, with normal bowel sounds. No distension or tympany. No guarding or rebound. No evidence of tenderness throughout. Skin: Warm, dry with normal turgor. Normal color with no rashes, no lesions, and no evidence of cellulitis. Vital Signs: 15:49 BP 155 / 85; Pulse 81; Resp 18; Temp 98; Pulse Ox 95% ; Pain 0/10; cp4 17:00 BP 132 / 67; Pulse 80; Resp 18; Pulse Ox 100% ; cp4 18:00 BP 119 / 75; Pulse 81; Resp 18; Pulse Ox 100% ; cp4 15:49 Pain Scale: Adult cp4 MDM: 15:49 Patient medically screened. ms3 15:52 Differential diagnosis: hypoglycemia vs electrolyte abnormality vs htn. ms3 19:14 Data reviewed: vital signs, nurses notes, lab test result(s), and as a result, I will ms3 discharge patient. Consideration of Admission/Observation Escalation of care including admission/observation considered. Patient's blood sugar maintained in the emergency department without hypoglycemic episode. Historians other than the Patient: EMS: [place]. Counseling: I had a detailed discussion with the patient and/or guardian regarding the historical points, exam findings, and any diagnostic results supporting the discharge/admit diagnosis, lab results, the need for outpatient follow up, to return to the emergency department if symptoms worsen or persist or if there are any questions or concerns that arise at home. ED course: Discussed holding nighttime long-acting insulin and decreasing morning insulin by half and monitoring blood glucose levels with patient and his . Patient to follow-up with his primary care physician in 1 to 2 days. Patient understands and agrees with plan. All questions were answered. Return precautions discussed include worsening symptoms, altered mental status, diaphoresis, hypoglycemia, or any other concerns. 06/12 15:49 Order name: CBC with Diff; Complete Time: 19:05 ms3 06/12 15:49 Order name: BMP; Complete Time: 19:05 ms3 06/12 17:18 Order name: Glucose, Ancillary Testing; Complete Time: 19:05 EDMS 06/12 19:21 Order name: Glucose, Ancillary Testing EDMS 06/12 15:49 Order name: PO challenge; Complete Time: 15:53 ms3 Administered Medications: No medications were administered Disposition Summary: 06/13/23 19:14 Discharge Ordered Notes: Location: Home ms3 Condition: Stable ms3 Diagnosis - Hypoglycemia, unspecified ms3 Followup: ms3 - With: Private Physician - When: 1 - 2 days - Reason: Recheck today's complaints Discharge Instructions: - Discharge Summary Sheet ms3 - Hypoglycemia ms3 Forms: - Medication Reconciliation Form ms3 - Thank You Letter ms3 - Antibiotic Education ms3 - Prescription Opioid Use ms3 - Patient Portal Instructions ms3 - Leadership Thank You Letter ms3 Signatures: Dispatcher [employer] EDMS Andrew Thompson DO DO ms3 Aliza Rehman cp4 Corrections: (The following items were deleted from the chart) 15:52 15:52 GLUCOSE+[id number].[email or web address].BRZ ordered. EDMS EDMS
[2023-06-14 02:41] VITALS: BP 119/75; TEMP 98; O2SAT 100
== END 2023-06-13 19:53 | disposition home or self-care (01) ==
LOC: ER 15:38
DX: E11.649 Type 2 diabetes mellitus with hypoglycemia without coma (principal); Z79.4 Long term (current) use of insulin; Z79.82 Long term (current) use of aspirin; Z88.5 Allergy status to narcotic agent
CPT/HCPCS: 36415; 80048; 82947; 85025; 99284